=== PATIENT | female | born 1985 | race Caucasian/White ===

== ENCOUNTER 2021-10-09 13:53 | Emergency (ER) | payer MEDICAID, SELFPAY ==
[2021-10-09 15:13] VITALS: BP 121/77; PULSE 84; RESP 15; TEMP 36.7; O2SAT 98; BMI 26.1
--- NOTE | 2021-10-09 18:29 | CTR_ITS ---
PROCEDURE INFORMATION: Exam: CT Head Without Contrast Exam date and time: 10/09/2021 8:58 PM Age: 36 years old Clinical indication: Numbness / parasthesia and visual disturbance; Prior surgery; Surgery type: Eye; Patient HX: C/O blurry vision with neck and back pain. 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 ; Additional info: Blurry vision and L sided numbness TECHNIQUE: Imaging protocol: Computed tomography of the head without contrast. Radiation optimization: All CT scans at this facility use at least one of these dose optimization techniques: automated exposure control; mA and/or kV adjustment per patient size (includes targeted exams where dose is matched to clinical indication); or iterative reconstruction. COMPARISON: No relevant prior studies available. RADIATION DOSE METRICS: Total DLP (mGy-cm): 1052.48 FINDINGS: Brain: No acute intracranial hemorrhage or mass effect. No definite acute infarct by CT. MRI could be more sensitive/specific for detection, as clinically directed. Cerebral ventricles: Ventricle size is normal for age. Paranasal sinuses: Included paranasal sinuses are essentially clear. Mastoid air cells: No significant acute finding. Bones/joints: No definite acute skull fracture. Soft tissues: No significant acute finding. CT/CT head wo con* [id number] IMPRESSION: 1. No acute intracranial hemorrhage or mass effect. 2. No definite acute infarct by CT, see above. 3. Other findings discussed above.
--- NOTE | 2021-10-09 20:35 | CTR_ITS ---
PROCEDURE INFORMATION: Exam: CT Lumbar Spine Without Contrast Exam date and time: 10/09/2021 9:12 PM Age: 36 years old Clinical indication: Numbness; Low back pain; Patient HX: C/O blurry vision with neck and back pain. 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 ; Additional info: Lowre back pain TECHNIQUE: Imaging protocol: Computed tomography of the lumbar spine without contrast. Radiation optimization: All CT scans at this facility use at least one of these dose optimization techniques: automated exposure control; mA and/or kV adjustment per patient size (includes targeted exams where dose is matched to clinical indication); or iterative reconstruction. COMPARISON: CT thoracic spin wo con* [id number] 10/09/2021 9:06 PM RADIATION DOSE METRICS: Total DLP (mGy-cm): 1461.93 FINDINGS: Bones/joints: No acute fracture. Normal alignment. Discs/Spinal canal/Neural foramina: Mild multilevel disc bulge at L2-L3, L3-L4, and L4-L5. No severe spinal canal stenosis. No significant neural foraminal narrowing. Soft tissues: Unremarkable. CT/CT lumbar spine wo con* [id number] IMPRESSION: No acute findings. Mild multilevel disc bulge at L2-L3, L3-L4, and L4-L5.
--- NOTE | 2021-10-09 20:35 | CTR_ITS ---
PROCEDURE INFORMATION: Exam: CT Cervical Spine Without Contrast Exam date and time: 10/09/2021 9:01 PM Age: 36 years old Clinical indication: Numbness; Neck pain; Patient HX: C/O blurry vision with neck and back pain. 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 TECHNIQUE: Imaging protocol: Computed tomography of the cervical spine without contrast. Radiation optimization: All CT scans at this facility use at least one of these dose optimization techniques: automated exposure control; mA and/or kV adjustment per patient size (includes targeted exams where dose is matched to clinical indication); or iterative reconstruction. COMPARISON: No relevant prior studies available. RADIATION DOSE METRICS: Total DLP (mGy-cm): 264.37 FINDINGS: Bones/joints: On axial CT images, no definite acute fracture is visible. Sagittal and coronal reconstructions show no acute fracture or subluxation. Mild degenerative disc changes and facet joint arthritis at several levels. Discs/Spinal canal/Neural foramina: No definite/significant disc herniation by CT, MRI could be more sensitive if clinically indicated. Lungs: No significant acute finding in the upper lungs. CT/CT cervical spin wo con* [id number] IMPRESSION: 1. No definite acute fracture or subluxation by CT. 2. Other findings discussed above.
--- NOTE | 2021-10-09 20:35 | CTR_ITS ---
PROCEDURE INFORMATION: Exam: CT Thoracic Spine Without Contrast Exam date and time: 10/09/2021 9:06 PM Age: 36 years old Clinical indication: Numbness; Pain in thoracic spine; Patient HX: C/O blurry vision with neck and back pain. 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 TECHNIQUE: Imaging protocol: Computed tomography of the thoracic spine without contrast. Radiation optimization: All CT scans at this facility use at least one of these dose optimization techniques: automated exposure control; mA and/or kV adjustment per patient size (includes targeted exams where dose is matched to clinical indication); or iterative reconstruction. COMPARISON: CT cervical spin wo con* [id number] 10/09/2021 9:01 PM RADIATION DOSE METRICS: Total DLP (mGy-cm): 1482 FINDINGS: Bones/joints: No acute fracture. Normal alignment. Discs/Spinal canal/Neural foramina: No significant disc protrusion. No severe spinal canal stenosis. No significant neural foraminal narrowing. Soft tissues: Unremarkable. CT/CT thoracic spin wo con* [id number] IMPRESSION: No acute findings.
--- NOTE | 2021-10-09 20:37 | W.ED.GENADLT ---
HPI - General Adult General: Chief complaint: Back Pain/Injury Stated complaint: Numbness on left side, back pain, blurry vision Time Seen by Provider: 10/09/21 20:01 History of Present Illness: Patient is a 36-year-old female with a history of prior herniated disks in the lumbar spine presenting to the emergency room for complaints of lower back pain left-sided neck pain, and numbness and paresthesia radiating from the left-sided the neck to the hands and left lateral body. Patient tells me that her back pain has been going on for the last 2 weeks not worsened. Patient reports midline back pain and paraspinal back pain. Patient denies any saddle anesthesia numbness, bladder or bowel incontinence. Patient denies any weakness in lower extremity. Patient denies any fever or chills, pain worse at night, history of cancer, or history of immunocompromise, HIV or diabetes. Patient tells me that in the last 48 hours, patient felt something popped in her neck. Since then, patient has been having left-sided cervical neck pain and numbness radiating down the left arm and left flank. Patient denies any weakness at any point. Patient also reports mild diplopia and facial numbness. Patient has no facial droop, language difficulty, gait instability, vertigo, or focal weakness in the arms or legs. Onset: two weeks of back pain and 48 hrs L sided neck pain with numbness/paresthesia Duration:ongoing Location:home Severity:moderate Associated symptoms: Deny chest pain, dyspnea, nausea, rash, palpitations or vomiting Review of Systems Const: Denies: fever(s) or chills Eyes: Denies: change in vision ENMT: Denies: mouth pain Card: Denies: chest pain or palpitations Resp: Denies: dyspnea or non-productive cough GI: Denies: abdominal pain, nausea, vomiting or diarrhea : Denies: dysuria Musc: Reports: neck pain (+L sided neck pain) and other (+lower thoracic and upper lumbar back midline and paraspinal back pain); Denies: extremity pain Skin/Breast: Denies: rash or new lesions Neuro: Reports: other (+L arm and flank numbness and parethesia); Denies: weakness in extremities Psych: Reports: other (Normal mood) Jordan/Lymph: Denies: easy bruising PFS ED PFSH: Medical History Herniated disc Social History Smoking and tobacco status: never smoked Alcohol intake: never Substance/Drug Use: never Physical Exam Const: COMMON NORMALS: alert HENMT: COMMON NORMALS: atraumatic HEAD & SCALP: atraumatic MOUTH: moist mucous membranes not abnormal Eye: COMMON NORMALS: EOMs intact bilaterally and conjunctivae normal CONJUNCTIVA: Yes conjunctivae normal Neck/C-Spine: COMMON NORMALS: full ROM and supple Resp: COMMON NORMALS: normal respiratory effort and clear to auscultation bilaterally AUSCULTATION: clear to auscultation bilaterally Cardio: COMMON NORMALS: regular rate RATE: regular rate GI: COMMON NORMALS: Soft to palpation and non-tender PALPATION: Yes Soft to palpation Back/Pelvis: OTHER: +midline T11-T2 lumbar midline tenderness to palpation, L1-5 midline bony tenderness to palpation, +paraspinal lower thoracic and lumbar tenderness to palpation Extremity: COMMON NORMALS: full ROM Neuro: SENSORIUM/ORIENTATION: Yes alert MOTOR EXAM: No Abnormal motor strength present and Other motor observations present (no focal motor deficits) OTHER: Mental status? Awake, alert, and oriented to self, year, month, location, and situation.? Following simple axial and appendicular commands.? Has appropriate fund of knowledge, comprehension, and insight.? Able to recall and understands pertinent aspects of medical history and current treatment status.? ? Language? Speech is fluent without word-finding difficulties.? Intact naming, expression, reception agent, and repetition.? ? Cranial nerves? 2,3,4,6: PERRL, EOMI with no nystagmus. 5: Intact sensation to light touch, symmetric? 7: Smile symmetrical, no facial droop.? 8: Hearing grossly intact.? 9,10: Normal palate movement.? 11: Normal strength in trapezius bilaterally 12: Tongue protrudes midline.? ? Motor examination? Normal bulk & tone. Strength as follows (R/L): Delts (5/5), Biceps (5/5), Triceps (5/5), Wrist ext (5/5), hip flexors (5/5), plantarflexors (5/5), dorsiflexors (5/5). Sensation? Light Touch: Grossly intact and equal in upper and lower extremities bilaterally? Romberg: Negative.? Distal joint position sense intact ? Coordination? Kyqyif-mf-zxhf-finger movements intact without dysmetria or past-pointing.? Rapid fingertaps: preserved amplitude without decriment.? No tremor, myoclonus or truncal ataxia.? ? Gait/stance? Steady, normal narrow base gait with appropriate arm swing and turning.? Tandem gait without hesitation or loss of balance. Psych: COMMON NORMALS: speech normal SPEECH: Yes normal speech MOOD & AFFECT: Yes euthymic mood Course Vital Signs: Vital signs: Vital Signs Temperature 98.0 F 10/09/21 15:13 Pulse Rate 81 10/09/21 22:13 Respiratory Rate 18 10/09/21 22:26 Blood Pressure 119/74 10/09/21 22:13 Pulse Oximetry 100 10/09/21 22:26 MDM - General Adult Medical Decision Making 36-year-old female history of prior herniated disc presenting to the emergency room with complaints of 2 weeks of midline lower thoracic and lumbar area tenderness and 48 hours of left-sided neck pain followed by paresthesia to the arms and flanks. On physical exam confusion is neurologically intact. Patient has midline and paraspinal tenderness in the at the level of T11 and below. No cervical tenderness. Neuro exam is intact. Imaging studies show multiple levels of lumbar disc herniations. I suspect the patient's paresthesia is related to cervical nerve impingement. He received IM Toradol Toradol, IM morphine, Tylenol, and lidocaine with mild improvement in pain. I have given patient follow up with our bilingual patient support caseworker to be seen by our outpatient PCP to establish care and to have patient get a MRI for multiple leves of herniation and neck pain. Patient aware of a call from our bilingual patient support caseworker to schedule for appointment(s) and verbalizes understanding of the importance of following up. I have given patient follow up with our bilingual patient support caseworker to be seen by our outpatient Orthopedidc spine for multiple level of herniated discs. Patient aware of a call from our bilingual patient support caseworker to schedule for appointment(s) and verbalizes understanding of the importance of following up. Rx: Percocet lidocaine patch, and menthol PRN pain Disposition: Discharge. Patient counseled regarding diagnostic impression, treatment plan. Patient given ED strict return precautions to return for continuation, worsening, or development of new symptoms. Instructed to f/u w/ PCP and orthopedic spine regarding symptoms today. Patient verbalized understanding. Lab Data Radiology Impressions Head CT 10/09/21 18:29 IMPRESSION: 1. No acute intracranial hemorrhage or mass effect. 2. No definite acute infarct by CT, see above. 3. Other findings discussed above. Cervical Spine CT 10/09/21 20:35 IMPRESSION: 1. No definite acute fracture or subluxation by CT. 2. Other findings discussed above. Lumbar Spine CT 10/09/21 20:35 IMPRESSION: No acute findings. Mild multilevel disc bulge at L2-L3, L3-L4, and L4-L5. Thoracic Spine CT 10/09/21 20:35 IMPRESSION: No acute findings. Imaging Data Other Imaging: Radiologist's impression: [facility] [address] [address] Scan Report Signed Patient: Dinora Flores Unit #: [id number] : 1985 Age/Sex: 36 / F ADM Date: 10/09/21 Loc: ER Room/Bed: Attending Dr: Ordering Provider/Ordering MD: Sang Morfin MD Date of Service: 10/09/21 Procedure(s): CT thoracic spin wo con* [id number] Accession Number(s): [id number] Report Number: [id number] PROCEDURE INFORMATION: Exam: CT Thoracic Spine Without Contrast Exam date and time: 10/09/2021 9:06 PM Age: 36 years old Clinical indication: Numbness; Pain in thoracic spine; Patient HX: C/O blurry vision with neck and back pain. 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 TECHNIQUE: Imaging protocol: Computed tomography of the thoracic spine without contrast. Radiation optimization: All CT scans at this facility use at least one of these dose optimization techniques: automated exposure control; mA and/or kV adjustment per patient size (includes targeted exams where dose is matched to clinical indication); or iterative reconstruction. COMPARISON: CT cervical spin wo con* [id number] 10/09/2021 9:01 PM RADIATION DOSE METRICS: Total DLP (mGy-cm): 1482 FINDINGS: Bones/joints: No acute fracture. Normal alignment. Discs/Spinal canal/Neural foramina: No significant disc protrusion. No severe spinal canal stenosis. No significant neural foraminal narrowing. Soft tissues: Unremarkable. CT/CT thoracic spin wo con* [id number] IMPRESSION: No acute findings. ? Dictated By: Jose Antonio Kee DO Signed By: Jose Antonio Kee DO Signed Date/Time: 10/09/212221 DD/ [address] [address] [address] Scan Report Signed Patient: Dinora Flores Unit #: [id number] : 1985 Age/Sex: 36 / F ADM Date: 10/09/21 Loc: ER Room/Bed: Attending Dr: Ordering Provider/Ordering MD: Sang Morfin MD Date of Service: 10/09/21 Procedure(s): CT lumbar spine wo con* [id number] Accession Number(s): [id number] Report Number: [id number] PROCEDURE INFORMATION: Exam: CT Lumbar Spine Without Contrast Exam date and time: 10/09/2021 9:12 PM Age: 36 years old Clinical indication: Numbness; Low back pain; Patient HX: C/O blurry vision with neck and back pain. 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 ; Additional info: Lowre back pain TECHNIQUE: Imaging protocol: Computed tomography of the lumbar spine without contrast. Radiation optimization: All CT scans at this facility use at least one of these dose optimization techniques: automated exposure control; mA and/or kV adjustment per patient size (includes targeted exams where dose is matched to clinical indication); or iterative reconstruction. COMPARISON: CT thoracic spin wo con* [id number] 10/09/2021 9:06 PM RADIATION DOSE METRICS: Total DLP (mGy-cm): 1461.93 FINDINGS: Bones/joints: No acute fracture. Normal alignment. Discs/Spinal canal/Neural foramina: Mild multilevel disc bulge at L2-L3, L3-L4, and L4-L5. No severe spinal canal stenosis. No significant neural foraminal narrowing. Soft tissues: Unremarkable. CT/CT lumbar spine wo con* [id number] IMPRESSION: No acute findings. Mild multilevel disc bulge at L2-L3, L3-L4, and L4-L5. ? Dictated By: Jose Antonio Kee DO Signed By: Jose Antonio Kee DO Signed Date/Time: 10/09/212224 DD/ [address] [address] [address] Scan Report Signed Patient: Dinora Flores Unit #: [id number] : 1985 Age/Sex: 36 / F ADM Date: 10/09/21 Loc: ER Room/Bed: Attending Dr: Ordering Provider/Ordering MD: Sang Morfin MD Date of Service: 10/09/21 Procedure(s): CT cervical spin wo con* [id number] Accession Number(s): [id number] Report Number: [id number] PROCEDURE INFORMATION: Exam: CT Cervical Spine Without Contrast Exam date and time: 10/09/2021 9:01 PM Age: 36 years old Clinical indication: Numbness; Neck pain; Patient HX: C/O blurry vision with neck and back pain. 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 TECHNIQUE: Imaging protocol: Computed tomography of the cervical spine without contrast. Radiation optimization: All CT scans at this facility use at least one of these dose optimization techniques: automated exposure control; mA and/or kV adjustment per patient size (includes targeted exams where dose is matched to clinical indication); or iterative reconstruction. COMPARISON: No relevant prior studies available. RADIATION DOSE METRICS: Total DLP (mGy-cm): 264.37 FINDINGS: Bones/joints: On axial CT images, no definite acute fracture is visible. ?Sagittal and coronal reconstructions show no acute fracture or subluxation. ?Mild degenerative disc changes and facet joint arthritis at several levels. Discs/Spinal canal/Neural foramina: No definite/significant disc herniation by CT, MRI could be more sensitive if clinically indicated. Lungs: No significant acute finding in the upper lungs. CT/CT cervical spin wo con* [id number] IMPRESSION: 1. No definite acute fracture or subluxation by CT. 2. Other findings discussed above. ? Dictated By: Riaz Sumner MD Signed By: Riaz Sumner MD Signed Date/Time: 10/09/212212 DD/ [address] [address] [address] Scan Report Signed Patient: Dinora Flores Unit #: [id number] : 1985 Age/Sex: 36 / F ADM Date: 10/09/21 Loc: ER Room/Bed: Attending Dr: Ordering Provider/Ordering MD: Eduard Rogers MD Date of Service: 10/09/21 Procedure(s): CT head wo con* [id number] Accession Number(s): [id number] Report Number: [id number] PROCEDURE INFORMATION: Exam: CT Head Without Contrast Exam date and time: 10/09/2021 8:58 PM Age: 36 years old Clinical indication: Numbness / parasthesia and visual disturbance; Prior surgery; Surgery type: Eye; Patient HX: C/O blurry vision with neck and back pain. 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 ; Additional info: Blurry vision and L sided numbness TECHNIQUE: Imaging protocol: Computed tomography of the head without contrast. Radiation optimization: All CT scans at this facility use at least one of these dose optimization techniques: automated exposure control; mA and/or kV adjustment per patient size (includes targeted exams where dose is matched to clinical indication); or iterative reconstruction. COMPARISON: No relevant prior studies available. RADIATION DOSE METRICS: Total DLP (mGy-cm): 1052.48 FINDINGS: Brain: No acute intracranial hemorrhage or mass effect. ?No definite acute infarct by CT. MRI could be more sensitive/specific for detection, as clinically directed. Cerebral ventricles: Ventricle size is normal for age. Paranasal sinuses: Included paranasal sinuses are essentially clear. Mastoid air cells: No significant acute finding. Bones/joints: No definite acute skull fracture. Soft tissues: No significant acute finding. CT/CT head wo con* [id number] IMPRESSION: 1. No acute intracranial hemorrhage or mass effect. 2. No definite acute infarct by CT, see above. 3. Other findings discussed above. ? Dictated By: Riaz Sumner MD Signed By: Riaz Sumner MD Signed Date/Time: 10/09/212206 DD/ 57 Discharge Plan Discharge Patient Disposition: Home Clinical Impression: Back pain, Neck pain, Paresthesia of arm, Acute herniated disc Condition: Stable Prescriptions: New Percocet 5-325 mg tablet 1 tab PO Q8H PRN (Reason: pain) Qty: 9 0RF lidocaine 5 % adhesive patch,medicated 1 patch topical DAILY PRN (Reason: pain) 30 Days Qty: 30 0RF Rx Instructions: leave on most painful area for up to 12 hrs Biofreeze (menthol) 5 % gel 1 ea topical BID PRN (Reason: pain) 10 Days Qty: 1 0RF Discharge Orders: Discharge ED (Routine); Ordered 10/09/21 Ordered By: Sang Morfin Discharge Diet: Advance as tolerated Discharge Activity: Increase activity as tolerated Activity Restrictions/Additional Instructions: Please come back to the emergency room to have worsening back pain, if have any problem with urination and bowel movement, if you have any weakness in the legs, numbness in the legs, or if you have any new or concerning complaints. Our bilingual patient support caseworker will have you follow-up with Orthopedic spine surgery and a primary care provider in the next few days. You would be expected to have a phone call with our bilingual patient support caseworker who will put you on the schedule. You can expect a call from us in the next 2-3 days. If you don't hear from us, call us back in the emergency room at [phone]. Here's a copy of your CT report: [address] [address] [address] Scan Report Signed Patient: Dinora Flores Unit #: [id number] : 1985 Age/Sex: 36 / F ADM Date: 10/09/21 Loc: ER Room/Bed: Attending Dr: Ordering Provider/Ordering MD: Sang Morfin MD Date of Service: 10/09/21 Procedure(s): CT lumbar spine wo con* [id number] Accession Number(s): [id number] Report Number: [id number] PROCEDURE INFORMATION: Exam: CT Lumbar Spine Without Contrast Exam date and time: 10/09/2021 9:12 PM Age: 36 years old Clinical indication: Numbness; Low back pain; Patient HX: C/O blurry vision with neck and back pain. 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 ; Additional info: Lowre back pain TECHNIQUE: Imaging protocol: Computed tomography of the lumbar spine without contrast. Radiation optimization: All CT scans at this facility use at least one of these dose optimization techniques: automated exposure control; mA and/or kV adjustment per patient size (includes targeted exams where dose is matched to clinical indication); or iterative reconstruction. COMPARISON: CT thoracic spin wo con* [id number] 10/09/2021 9:06 PM RADIATION DOSE METRICS: Total DLP (mGy-cm): 1461.93 FINDINGS: Bones/joints: No acute fracture. Normal alignment. Discs/Spinal canal/Neural foramina: Mild multilevel disc bulge at L2-L3, L3-L4, and L4-L5. No severe spinal canal stenosis. No significant neural foraminal narrowing. Soft tissues: Unremarkable. CT/CT lumbar spine wo con* [id number] IMPRESSION: No acute findings. Mild multilevel disc bulge at L2-L3, L3-L4, and L4-L5. ? 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
[2021-10-09] MEDS: ketorolac 30 mg/mL INJ IM (20:42)
[2021-10-09] MEDS: lidocaine 5% Patch 1 PATCH TOPICAL (20:45)
[2021-10-09] MEDS: acetaminophen 500 mg Tablet 1000 MG PO (20:47)
[2021-10-09 22:13] VITALS: BP 119/74; PULSE 81; RESP 13; O2SAT 98
[2021-10-09 22:26] VITALS: RESP 18; O2SAT 100
[2021-10-09] MEDS: morphine 4 mg/mL SDV 1 mL IM (22:26)
[2021-10-09 23:21] VITALS: BP 118/79; PULSE 79; RESP 12; O2SAT 97
--- NOTE | 2021-10-10 09:50 | DCPLANNER ---
Addendum entered by Lelia Burnett 11/11/21 12:46: Patient had a follow up appointment scheduled with Dr. Manzano at ortho - patient did attend appointment. Addendum entered by Lelia Burnett 10/13/21 08:29: Patient has a follow up appointment scheduled for Thursday October 28, 2021 at 3:[address] Manzano at ortho. pharmacy operations manager spoke with patient and gave her the appointment information. Original Note: pharmacy operations manager had message to schedule a follow up appointment for patient with ortho. pharmacy operations manager sent patients information to the front office staff at ortho. Patients information will be printed and reviewed. Clinic will call patient with appointment information.
--- NOTE | 2021-10-13 08:30 | DCPLANNER ---
Addendum entered by Lelia Burnett 11/11/21 12:43: Patient had a follow up appointment scheduled at [facility] with Dr. Duarte to est care - patient did attend appointment. Original Note: creative project manager had message to speak with patient about getting established with a primary care physician. Patient stated that she would like to get established with Dr. Duarte at [facility]. creative project manager called the family clinic, spoke with Stacie, gave clinic patients information. A follow up appointment was scheduled for Wednesday October 27, 2021 at 1:[address] Duarte. creative project manager called patient and gave patient the appointment information.
== END 2021-10-09 23:22 | disposition home or self-care (01) ==
PROVIDERS: Emergency Provider Emergency Medicine
DX: M51.26 Other intervertebral disc displacement, lumbar region (principal); M54.2 Cervicalgia; R20.2 Paresthesia of skin
CPT/HCPCS: 70450; 72125; 72128; 72131; 96372; 99284; J1885; J2270

== ENCOUNTER 2021-10-16 20:13 | Emergency (ER) | payer MEDICAID, SELFPAY ==
[2021-10-16 22:41] VITALS: BP 118/81; PULSE 94; RESP 18; TEMP 36.2; O2SAT 100; BMI 28.5
--- NOTE | 2021-10-17 00:41 | W.ED.EXTPRO ---
HPI - Extremity Problem General: Chief complaint: Extremity Problem,Nontraumatic Stated complaint: leg pain bilateral Time Seen by Provider: 10/17/21 00:40 History of Present Illness: 36-year-old female comes in today with complaints of low back pain radiating down her right leg. Patient was diagnosed with some multiple disc herniations of the lumbar spine 1 week ago. Patient reports she been doing fairly well and had woke up from a nap today noticing increased low back pain with some radiation of the pain down her right leg. Patient appears nontoxic. Patient appears in mild pain. Patient denies any loss of bowel or bladder control. Review of Systems Musc: Reports: back pain PFSH ED PFSH: Medical History Herniated disc Social History Smoking and tobacco status: never smoked Alcohol intake: never Female Reproductive History: Date of last menstrual period: 09/16/21 Physical Exam Const: COMMON NORMALS: alert HENMT: COMMON NORMALS: normocephalic HEAD & SCALP: normocephalic Resp: COMMON NORMALS: normal respiratory effort and clear to auscultation bilaterally AUSCULTATION: clear to auscultation bilaterally Cardio: COMMON NORMALS: regular rate RATE: regular rate Back/Pelvis: LUMBAR SPINE/LOWER BACK: Yes paraspinal muscle tenderness Neuro: SENSORIUM/ORIENTATION: Yes alert Course Vital Signs: Vital signs: Vital Signs Temperature 97.1 F L 10/16/21 22:41 Pulse Rate 94 10/16/21 22:41 Respiratory Rate 18 10/16/21 22:41 Blood Pressure 118/81 10/16/21 22:41 Pulse Oximetry 100 10/16/21 22:41 Oxygen Delivery Me thod 10/16/21 22:41 MDM - Extremity (Nontraumatic) Medical Decision Making 36-year-old female comes in today with lower back pain now with radiation down her right leg. Patient denies any loss of bowel or bladder control. On exam patient moves all extremities well. Negative leg lift test. Vital signs are normal. Differential diagnosis includes facet arthropathy, intervertebral disc disease, sciatica. Patient probably has some mild sciatica due to her intervertebral disc disease. Reviewed the exam with patient with recommendations for treatment and follow-up. Reassured patient that she needs to monitor for loss of bowel or bladder control as that would be the biggest sign of significant abnormality. At this time there was no sign of cauda equina syndrome and recommend follow-up as scheduled. Discharge Plan Discharge Patient Disposition: Home Clinical Impression: Intervertebral disc degeneration Qualifiers: Spinal region: lumbar Qualified Code(s): M51.36 - Other intervertebral disc degeneration, lumbar region Condition: Stable Prescriptions: New methocarbamol 750 mg tablet 750 mg PO TID PRN (Reason: back pain) Qty: 30 0RF No Action Percocet 5-325 mg tablet 1 tab PO Q8H PRN (Reason: pain) Qty: 9 0RF lidocaine 5 % adhesive patch,medicated 1 patch topical DAILY PRN (Reason: pain) 30 Days Qty: 30 0RF Rx Instructions: leave on most painful area for up to 12 hrs Biofreeze (menthol) 5 % gel 1 ea topical BID PRN (Reason: pain) 10 Days Qty: 1 0RF Discharge Orders: Discharge ED (Routine); Ordered 10/17/21 Ordered By: William Arce Discharge Diet: Usual diet Discharge Activity: Increase activity as tolerated Patient Instructions: Back Pain (ED), Lower Back Exercises (ED) Activity Restrictions/Additional Instructions: Home and rest. Activity as tolerated. Gentle stretching and range of motion exercises. Drink plenty of water with medication. It is recommended to use acetaminophen and ibuprofen for pain and discomfort. Use oxycodone for severe pain. You may try the methocarbamol, a muscle relaxer, for further pain relief. Follow-up with primary care for further instructions. Return to ER for worsening symptoms such as loss of bowel or bladder control, high fever, or new concerns. Coding Level of Care Code ED Leases And Land Supervisor for Clarke Gómez
[2021-10-17] MEDS: orphenadrine 30 mg/mL Inj 2 mL 60 MG IM (02:10)
[2021-10-17] MEDS: ketorolac 30 mg/mL INJ IM (02:10)
[2021-10-17] MEDS: dexamethasone 10 mg/mL INJ IM (02:10)
[2021-10-17 02:15] VITALS: BP 118/81; PULSE 94; RESP 18; TEMP 36.2; O2SAT 100
== END 2021-10-17 02:20 | disposition home or self-care (01) ==
PROVIDERS: Emergency Provider Nurse Practitioner Family
DX: M51.36 Other intervertebral disc degeneration, lumbar region (principal)
CPT/HCPCS: 96372; 99284; J1100; J1885; J2360

== ENCOUNTER → 2021-10-27 14:21 | Outpatient (BNVA) | payer BC, MEDICAID, SELFPAY | PROVIDERS: Visit Provider Family Medicine | DX: G89.29 Other chronic pain (principal); M54.2 Cervicalgia; M54.50 Low back pain, unspecified | CPT/HCPCS: 80053; 80061; 84443; 85025; 85651; 86140 ==

== ENCOUNTER → 2021-10-28 15:47 | Outpatient (BNVA) | payer BC, MEDICAID, SELFPAY | PROVIDERS: Visit Provider Orthopaedic Surgery | DX: M54.50 Low back pain, unspecified (principal); M54.2 Cervicalgia | CPT/HCPCS: 72110; 99204 ==

== ENCOUNTER → 2021-11-15 14:32 | Outpatient (BNVA) | payer BC, MEDICAID, SELFPAY | DX: U07.1 COVID-19 (principal); Z20.822 Contact with and (suspected) exposure to COVID-19 | CPT/HCPCS: 87426 ==

== ENCOUNTER 2021-12-23 09:35 | Emergency (ER) | payer BC, MEDICAID, SELFPAY ==
[2021-12-23 09:36] VITALS: BMI 28.0
[2021-12-23 09:43] VITALS: BP 123/83; PULSE 92; RESP 18; TEMP 36.4; O2SAT 97
--- NOTE | 2021-12-23 10:02 | ED_ITS ---
HPI - Back Pain/Injury General: Chief Complaint: Back Pain/Injury Stated Complaint: spine pain Time Seen by Provider: 12/23/21 09:38 History of Present Illness: Patient is a 36-year-old female comes to the ED with back pain. Patient has chronic back pain and sees Dr. Manzano for herniated disc of lumbar spine. She states that they are currently the process of getting her set up with an MRI of her spine. She is also in the process of getting set up with pain management as well. Patient denies any recent injury or trauma to cause pain. Pain has been progressing now for the past couple weeks. She says pain starts in her lower back and then radiates up to her mid back and also radiates down into her legs bilaterally. Denies any bladder or bowel incontinence, pelvic anesthesia or weakness to lower extremities. Associated symptoms: Deny abdominal pain, chills, dysuria, fatigue, fever(s), hematuria, nausea or vomiting Review of Systems Const: Denies: fever(s), chills or fatigue Eyes: Denies: change in vision or eye discomfort ENMT: Denies: throat pain, odynophagia, nasal discharge or nasal congestion Card: Denies: chest pain, palpitations, edema, swelling of feet/ankles, dyspnea on exertion or orthopnea Resp: Denies: dyspnea, productive cough or non-productive cough GI: Denies: abdominal pain, nausea, vomiting, diarrhea, constipation or hematochezia : Denies: flank pain, dysuria or hematuria Musc: Reports: back pain; Denies: neck pain or extremity swelling Skin/Breast: Denies: rash or new lesions Neuro: Denies: headache(s), numbness in extremities or weakness in extremities PFSH ED PFSH: Medical History Herniated disc Family History Mother Anesthesia complication Cancer Psychiatric illness Sister Anesthesia complication Psychiatric illness Father Psychiatric illness Denies family history of Diabetes CAD (coronary artery disease) Clotting disorder Dementia Hyperlipidemia Chronic kidney disease (CKD) Suicide Bleeding disorder Family history of premature coronary artery disease Lung disease Hypertension Stroke Social History Smoking and tobacco status: never smoked Alcohol intake: current Alcohol intake frequency: holidays/special occasions only Female Reproductive History: Date of last menstrual period: 11/20/21 Para: 1 Spontaneous abortions: Yes Physical Exam Const: COMMON NORMALS: no acute distress, patient oriented x3 and alert HENMT: COMMON NORMALS: normocephalic HEAD & SCALP: normocephalic MOUTH: Normal oral and palatal mucosa present THROAT: posterior oropharynx normal and uvula midline Neck/C-Spine: COMMON NORMALS: supple GENERAL: Yes normal visual inspection Resp: COMMON NORMALS: normal respiratory effort, No retractions, No use of accessory muscles and clear to auscultation bilaterally AUSCULTATION: clear to auscultation bilaterally Cardio: COMMON NORMALS: regular rate, regular rhythm, S1 normal heart sound present, S2 normal heart sound present, No gallops present (Cardio), No clicks present (Cardio), No murmurs present (Cardio) and Peripheral pulses 2+ throughout RATE: regular rate RHYTHM: regular rhythm HEART SOUNDS: S1 normal heart sound present and S2 normal heart sound present PERIPHERAL PULSES: Peripheral pulses 2+ throughout GI: COMMON NORMALS: Normal to inspection, nondistended, normoactive bowel sounds present, Soft to palpation, non-tender and no masses PALPATION: Yes Soft to palpation : COMMON NORMALS: Yes no CVA tenderness BLADDER/KIDNEY EXAM: Yes no CVA tenderness Back/Pelvis: COMMON NORMALS: no CVA tenderness LUMBAR SPINE/LOWER BACK: Yes pain with ROM, No lumbar spinal tenderness and Yes paraspinal muscle tenderness Lumbar paraspinal muscle tenderness: bilateral Extremity: COMMON NORMALS: normal to inspection Neuro: COMMON NORMALS: patient oriented x3 SENSORIUM/ORIENTATION: Yes alert GAIT: Yes Normal gait present Skin: GENERAL SKIN EXAM: dry skin Course Vital Signs: Vital signs: Vital Signs Temperature 97.5 F L 12/23/21 09:43 Pulse Rate 92 12/23/21 09:43 Respiratory Rate 18 12/23/21 09:43 Blood Pressure 123/83 12/23/21 09:43 Pulse Oximetry 97 12/23/21 09:43 Oxygen Delivery Me thod 12/23/21 09:43 MDM - Back Pain/Injury Medical Decision Making Patient is a 36-year-old female comes to the ED with back pain. Patient has chronic back pain and sees Dr. Manzano for herniated disc of lumbar spine. She states that they are currently the process of getting her set up with an MRI of her spine. She is also in the process of getting set up with pain management as well. Patient denies any recent injury or trauma to cause pain. Denies any cauda equina symptoms. Vitals are stable. Patient appears in no acute distress. She has some lumbar paraspinal muscle tenderness but rest of exam is benign. She is given a dose of Toradol, Solu-Medrol and Norflex while here in the ED. Patient diagnosed with back pain and was discharged home with a prescription for Celebrex, Flexeril and Medrol Dosepak told to follow-up with PCP within the next week for reevaluation. Return to ED precautions given. Patient understood and agreed with plan. Discharge Plan Discharge Patient Disposition: Home Clinical Impression: Back pain Qualifiers: Back pain location: low back pain Chronicity: chronic Back pain laterality: bilateral Sciatica presence: unspecified whether sciatica present Qualified Code(s): M54.50 - Low back pain, unspecified Condition: Stable Prescriptions: New celecoxib 100 mg capsule 100 mg PO BID PRN (Reason: pain) Qty: 20 0RF Medrol (Alvaro) 4 mg tablets,dose pack See Rx Instructions .ROUTE .COMPLEX Qty: 21 0RF Rx Instructions: orally per package directions cyclobenzaprine 5 mg tablet 5 mg PO BID PRN (Reason: muscle spasm) Qty: 20 0RF No Action baclofen 10 mg tablet 10 mg PO TID Qty: 30 1RF Discharge Orders: Discharge ED (Routine); Ordered 12/23/21 Ordered By: Kelton Woodson Referrals: Jarek Duarte DO [Primary Care Provider] - Discharge Diet: Regular Discharge Activity: Increase activity as tolerated Patient Instructions: Back Pain Activity Restrictions/Additional Instructions: Follow-up with medical provider as directed in the next 5 to 7 days reevaluation. Take medications as prescribed. Return to the ER or your medical provider if condition worsens. Please read and understand discharge instructions. Thank you for choosing [facility] for your healthcare needs today. Please realize this is an emergency room and that we are providing you with a medical screening exam and this may not be complete and all inclusive of all the testing and or work up that you may need to determine your ailment or severity of your illness. It is very important that you follow up as instructed or that you return to the Emergency Department should you have concerns or if your condition changes or worsens in any way. Coding Level of Care Code ED Resolute Professional for Clarke Fwd Exam Comprehensive
[2021-12-23] MEDS: orphenadrine 30 mg/mL Inj 2 mL 60 MG IM (10:20)
[2021-12-23] MEDS: ketorolac 60 mg/2 mL INJ IM (10:20)
== END 2021-12-23 10:39 | disposition home or self-care (01) ==
PROVIDERS: Emergency Provider Physician Assistant; PCP Family Medicine
DX: M51.26 Other intervertebral disc displacement, lumbar region (principal)
CPT/HCPCS: 96372; 99284; J1885; J2360; J2930

== ENCOUNTER 2022-01-06 07:22 | Outpatient (CLI) | payer BC, MEDICAID, SELFPAY ==
--- NOTE | 2022-01-06 08:00 | MR_ITS ---
WS: [id number] MRI CERVICAL SPINE NONCONTRAST HISTORY: Chronic neck pain COMPARISON: None available. Technique: Multiplanar, multisequence noncontrast imaging of the cervical spine. Mild LEFT curvature cervical spine. Posterior alignment is normal. Signal within the cervical cord is normal. Visualized posterior fossa is unremarkable. Craniocervical junction, C1 and C2 relationship, odontoid process and soft tissues are normal. C2-C3: Normal. C3-C4: Normal. C4-C5: Normal. C5-C6: Mild osteophytic ridging with a LEFT paracentral disc protrusion. No contact on the nerve root s or cervical cord. C6-C7: Small LEFT foraminal protrusion. No significant stenosis. Very minimal encroachment upon the C 7 nerve root. C7-T1: Normal. Paraspinal soft tissue are normal. MR/MR cervical spin wo con* [id number] IMPRESSION: 1. No high-grade central stenosis. 2. Small LEFT paracentral disc protrusion at C5-6. 3. Small LEFT foraminal disc protrusion at C6-7 with minimal encroachment upon the nerve roots. 4. Mild LEFT curvature cervical spine.
== END 2022-01-06 07:23 | disposition home or self-care (01) ==
PROVIDERS: PCP Family Medicine; Visit Provider Orthopaedic Surgery
DX: G89.29 Other chronic pain (principal); M43.9 Deforming dorsopathy, unspecified; M50.222 Other cervical disc displacement at C5-C6 level
CPT/HCPCS: 72141

== ENCOUNTER → 2022-01-15 08:39 | Outpatient (BNVA) | payer BC, MEDICAID, SELFPAY | PROVIDERS: PCP Family Medicine; Visit Provider Orthopaedic Surgery | DX: M54.2 Cervicalgia (principal) | CPT/HCPCS: 72050 ==

== ENCOUNTER → 2022-10-19 10:45 | Outpatient (BNVA) | payer BC, MEDICAID, SELFPAY | PROVIDERS: PCP Family Medicine; Visit Provider Emergency Medicine | DX: J11.1 Influenza due to unidentified influenza virus with other respiratory manifestations (principal); A08.4 Viral intestinal infection, unspecified | CPT/HCPCS: 87426 ==

== ENCOUNTER 2023-03-05 00:19 | Emergency (ER) | payer BC, SELFPAY ==
[2023-03-05 00:38] VITALS: BP 131/83; PULSE 89; RESP 18; TEMP 36.5; O2SAT 99; BMI 32.5
--- NOTE | 2023-03-05 00:57 | W.ED.NEUROSD ---
HPI - Neuro Symptoms/Deficit General: Chief Complaint: Neuro Symptoms/Deficit Stated Complaint: limb heavy, body numb headach dizzy Time Seen by Provider: 03/05/23 00:33 History of Present Illness: 38-year-old female presents emergency department with complaints that she has generalized numbness headache dizziness over her entire body and feeling that her body is very heavy. She states she takes CBD Gummies for her fibromyalgia. She states she generally has feelings of a headache and then after approximately 1 hour feels heaviness very similar to what she has at present. She states that she feels this may be symptoms of her fibromyalgia and has attempted to be seen by neurology several times for fibromyalgia mapping but has not been able to have that completed as of yet. She is able to ambulate without any difficulties at present. She is in no acute distress . Review of Systems General: Reports: 10 or more systems reviewed and unremarkable except in HPI and below Neuro: Reports: weakness in extremities PFS ED PFSH: Medical History Herniated disc Family History Mother Anesthesia complication Cancer Psychiatric illness Sister Anesthesia complication Psychiatric illness Father Psychiatric illness Denies family history of Diabetes CAD (coronary artery disease) Clotting disorder Dementia Hyperlipidemia Chronic kidney disease (CKD) Suicide Bleeding disorder Family history of premature coronary artery disease Lung disease Hypertension Stroke Social History Smoking and tobacco/nicotine status: never used tobacco/nicotine Alcohol intake: current Alcohol intake frequency: holidays/special occasions only Substance/Drug Use: never Female Reproductive History: Para: 1 Spontaneous abortions: Yes Physical Exam Narrative: EXAM NARRATIVE: Constitutional: the patient appears well nourished and with normal development. Vital signs reviewed as documented. HENMT: Normocephalic, atraumatic. Extermal ears with normal appearance without drainage. Nose without drainage, normal appearance. Mucus membranes moist. Neck is supple, No jugular venous distension, trachea is midline, no appreciable carotid bruits. No lymphadenopathy. No meningeal signs. Flexion, extension and lateral rotation is without pain. Eyes: Pupils are equal, round, reactive to light and accommodation. No scleral icterus. Extra-ocular movement are intact. Thorax is symmetrical and with equal rise and fall with respirations. Resp: Lungs are clear to auscultation. No wheezes, rales, crackles or ronchi at present. Cardio: Regular rate and rhythm. Positive S1, S2. No appreciable murmurs, rubs or gallops. GI: Abdominal exam reveals normal bowel sounds to all quadrants. No organomegaly. No obvious palpable masses noted. No hepatomegally appreciated. Soft, nontender to palpation. Extremity: Extremities are non-edematous and both femoral and pedal pulses are 2+ and equal bilaterally. Moves all extremities well, sensation in all extremities. Neuro: Alert and oriented x4, person, place, time and situation. Cranial nerves II through XII are grossly intact, there is no focal neurological deficits that I can appreciate at present. Motor strength in the upper and lower extremities are equal and bilateral 5/5. Psych: Cooperative, calm, normal thought process, appropriate judgment. Skin: No lesions, rashes. No gross abnormalities noted. Back: Symmetrical, no obvious deformity, No CVA tenderness Course Vital Signs: Vital signs: Vital Signs Temperature 97.7 F 03/05/23 00:38 Pulse Rate 82 03/05/23 04:04 Respiratory Rate 16 03/05/23 04:04 Blood Pressure 139/94 03/05/23 04:04 Pulse Oximetry 100 03/05/23 04:04 Oxygen Delivery Me thod Room Air 03/05/23 03:17 MDM - Neuro Symptoms/Deficit Medical Decision Making Physical exam completed and documented. I have discussed with the patient the need for follow-up I will not at present perform any radiographic examinations and I will provide her a work note as she is supposed to be at work tomorrow but states there is no way she could go because she has been here most of the evening. Medical Records I reviewed the patient's medical records. No radiology studies performed this visit Discharge Plan Discharge Patient Disposition: Home Clinical Impression: Muscle pain, fibromyalgia Condition: Stable Prescriptions: No Action acetaminophen 500 mg tablet 500 mg PO Q6H PRN gabapentin 100 mg capsule 100 mg PO BID Qty: 60 2RF duloxetine [Cymbalta] 30 mg capsule,delayed release(DR/EC) 30 mg PO DAILY Qty: 30 2RF ondansetron 8 mg tablet,disintegrating 8 mg PO Q8H PRN (Reason: nausea and vomiting) 5 Days Qty: 15 0RF celecoxib 100 mg capsule See Rx Instructions .ROUTE .COMPLEX Qty: 60 0RF Dose Instruction: Take 1 capsule by mouth twice daily Rx Instructions: Take 1 capsule by mouth twice daily Discharge Orders: Discharge ED (Routine); Ordered 03/05/23 Ordered By: Frank Pimentel Referrals: Jarek Duarte DO [Primary Care Provider] - Discharge Diet: Advance as tolerated Discharge Activity: Resume usual activity Patient Instructions: Opioid Safety, Pain Management Activity Restrictions/Additional Instructions: Activity Restrictions/Additional Instructions: Thank you for choosing [facility] for your healthcare needs today. Please realize that you were seen in the Emergency Department and that we are providing you with an emergency medical screening exam and this may not be a complete and all inclusive of all the testing and or medical work-up that you may need to determine your ailment or severity of your illness. It is very important that you follow-up as instructed with your Primary care provider or Specialist for additional evaluation and to discuss your medical treatment plan. You may return to the Emergency Department should you have concerns or if your condition changes or worsens in any way. Stand Alone Forms: Work/School Release Coding Level of Care Code ED Cadmium Liquor Maker for Clarke Gómez
[2023-03-05 01:58] VITALS: BP 139/94; PULSE 81; RESP 18; O2SAT 100
[2023-03-05 02:44] VITALS: BP 139/94; PULSE 86; O2SAT 97
[2023-03-05 03:17] VITALS: BP 139/94; PULSE 80; O2SAT 99
[2023-03-05 04:04] VITALS: BP 139/94; PULSE 82; RESP 16; O2SAT 100
== END 2023-03-05 04:06 | disposition home or self-care (01) ==
PROVIDERS: Emergency Provider Internal Medicine; PCP Family Medicine
DX: M79.7 Fibromyalgia (principal); M79.10 Myalgia, unspecified site
CPT/HCPCS: 99281

== ENCOUNTER → 2023-07-28 09:35 | Outpatient (BNVA) | payer BC, SELFPAY | PROVIDERS: PCP Family Medicine; Visit Provider Nurse Practitioner Family | DX: J02.9 Acute pharyngitis, unspecified (principal); J06.9 Acute upper respiratory infection, unspecified | CPT/HCPCS: 87880 ==